=== PATIENT | female | born 1990 | race Caucasian/White ===

== ENCOUNTER 2021-04-02 00:45 | Emergency (ER) | payer MEDICAID ==
[2021-04-02 01:24] LABS: CORONAVIRUS COVID-19 NAA NEGATIVE (NEGATIVE)
[2021-04-02] MEDS ORDERED: Albuterol/Ipratropium 3.0-0.5 MG/3 ML Neb Soln NEB ONE (01:31)
--- NOTE | 2021-04-02 01:41 | EDM.PDOC ---
"ED HPI GENERAL MEDICAL PROBLEM - General Chief Complaint: Respiratory Problem Time Seen by Provider: 04/02/21 01:00 Source of Information: Reports: Patient History Limitations: Reports: No Limitations - History of Present Illness INITIAL COMMENTS - FREE TEXT/NARRATIVE: This 31 yo female patient was brought to the ED by [facility] with increased shortness of breath and a cough. The patient reports she was seen in the clinic yesterday due to pain in her shoulder and back. The patient reports she was given a steroid. After taking the steroid for a day, the patient started to notice a cough and increased shortness of breath. The patient reports her symptoms got much worse. EMS reports her oxygen level was 88% when she was on room air. The patient was placed on a non-rebreather at 10 lpm which increased her oxygen saturation to 96%. 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 The patient denies any other health problems at this time. The patient reports she did use a nebulizer when she was a child, but has not had any problems since that time. Onset: Today Duration: Constant, Getting Worse Location: Reports: Chest Quality: Reports: Other Severity: Moderate Improves with: Reports: None Worsens with: Reports: None Context: Reports: Other Associated Symptoms: Reports: cough w sputum, Shortness of Breath Back Pain Score (Numeric/FACES): 10 - Related Data Allergies Allergy/AdvReac Type Severity Reaction Status Date / Time No Known Allergies Allergy Verified 02/11/21 20:35 Home Meds: Home Meds . 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: , Spontaneous Musculoskeletal History: Reports: None Neurological History: Reports: None Psychiatric History: Reports: None Endocrine/Metabolic History: Reports: None Hematologic History: Reports: None Immunologic History: Reports: None Oncologic (Cancer) History: Reports: None Dermatologic History: Reports: None - Infectious Disease History Infectious Disease History: Reports: None - Past Surgical History GI Surgical History: Reports: Cholecystectomy Endocrine Surgical History: Reports: None Neurological Surgical History: Reports: None Musculoskeletal Surgical History: Reports: None Social & Family History - Family History Family Medical History: No Pertinent Family History - Caffeine Use Caffeine Use: Reports: Coffee, Soda ED ROS GENERAL - Review of Systems Review Of Systems: Comprehensive ROS is negative, except as noted in HPI. ED EXAM, GENERAL - Physical Exam Exam: See Below Exam Limited By: No Limitations General Appearance: Alert, WD/WN, Anxious, Moderate Distress Eye Exam: Bilateral Eye: EOMI, Normal Inspection, PERRL Ears: Normal External Exam, Normal Canal, Hearing Grossly Normal, Normal TMs Nose: Normal Inspection, Normal Mucosa, No Blood Throat/Mouth: Normal Inspection, Normal Lips, Normal Teeth, Normal Gums, Normal Oropharynx, Normal Voice, No Airway Compromise Head: Atraumatic, Normocephalic Neck: Normal Inspection, Supple, Non-Tender, Full Range of Motion Respiratory/Chest: Decreased Breath Sounds, Wheezing Cardiovascular: No Edema, No Gallop, No JVD, No Murmur, Tachycardia GI/Abdominal: Normal Bowel Sounds, Soft, Non-Tender, No Organomegaly, No Distention, No Abnormal Bruit, No Mass (Female) Exam: Deferred Rectal (Female) Exam: Deferred Back Exam: Normal Inspection, Full Range of Motion, NT Extremities: Normal Inspection, Normal Range of Motion, Non-Tender, Normal Capillary Refill, No Pedal Edema Neurological: Alert, Oriented, CN II-XII Intact, Normal Cognition, Normal Gait, Normal Reflexes, No Motor/Sensory Deficits Psychiatric: Normal Affect Skin Exam: Warm, Dry, Intact, Normal Color, No Rash Lymphatic: No Adenopathy #1 Interpretation EKG Date: 04/02/21 Time: 01:20 Rhythm: Other (Sinus Tach) [place]: Normal P-Wave: Present QRS: Normal ST-T: Normal QT: Normal Comparison: NA - No Prior EKG Course - Vital Signs Last Recorded V/S: Last Vital Signs Temp 36.1 C 04/02/21 00:57 Pulse 111 H 04/02/21 00:57 Resp 28 H 04/02/21 00:57 BP 105/74 04/02/21 00:57 Pulse Ox 88 L 04/02/21 00:57 - Orders/Labs/Meds Orders: Active Orders 24 hr Category Date Time Status EKG Documentation Completion [RC] STAT Care 04/02/21 00:41 Active RT Aerosol Therapy [RC] ASDIRECTED Care 04/02/21 01:31 Ordered CULTURE BLOOD [BC] Stat Lab 04/02/21 00:41 Ordered DRUG SCREEN URINE BIORAD [URCHEM] Stat Lab 04/02/21 00:41 Ordered HCG QUALITATIVE,URINE [URCHEM] Stat Lab 04/02/21 00:41 Ordered UA RFX KADEN AND CULT IF INDIC [URIN] Urgent Lab 04/02/21 00:41 Ordered Labs: Laboratory Tests 04/02/21 04/02/21 04/02/21 Range/Units 00:40 01:35 01:35 WBC 15.7 H (5.0-10.0) 10^3/uL RBC 4.67 (4.2-5.4) 10^6/uL Hgb 13.7 (12.0-16.0) g/dL Hct 41.6 (37.0-47.0) % MCV 89.1 (80-100) fL MCH 29.3 (27.0-34.0) pg MCHC 32.9 L (33.0-35.0) g/dL Plt Count 261 (150-450) 10^3/uL Neut % (Auto) 80.8 H (42.2-75.2) % Lymph % (Auto) 12.6 L (20.5-50.1) % Sharkey % (Auto) 5.0 (2-8) % Eos % (Auto) 1.4 (1.0-3.0) % Baso % (Auto) 0.2 (0.0-1.0) % D-Dimer, Quantitative (0-400) ng/mL Sodium 139 (136-145) mmol/L Potassium 3.7 (3.5-5.1) mmol/L Chloride 102 (98-107) mmol/L Carbon Dioxide 26 (21-32) mmol/L Anion Gap 14.7 H (7-13) mEq/L BUN 12 (7-18) mg/dL Creatinine 0.93 (0.55-1.02) mg/dL Est Cr Clr Drug Dosing 79.59 mL/min Estimated GFR (MDRD) > 60 BUN/Creatinine Ratio 12.9 (No establ ref range) Glucose 110 H (70-99) mg/dL Lactic Acid (0.4-2.0) mmol/L Calcium 8.1 L (8.5-10.1) mg/dL Total Bilirubin 0.5 (0.2-1.0) mg/dL AST 14 L (15-37) U/L ALT 31 (14-59) U/L Alkaline Phosphatase 76 (46-116) U/L Troponin I < 0.017 (0.000-0.056) ng/mL Total Protein 6.8 (6.4-8.2) g/dL Albumin 3.5 (3.4-5.0) g/dL Globulin 3.3 Albumin/Globulin Ratio 1.1 Influenza Type A RNA Negative (NEGATIVE) Influenza Type B RNA Negative (NEGATIVE) SARS-CoV-2 RNA (DE) Negative (NEGATIVE) 04/02/21 04/02/21 Range/Units 01:35 01:35 WBC (5.0-10.0) 10^3/uL RBC (4.2-5.4) 10^6/uL Hgb (12.0-16.0) g/dL Hct (37.0-47.0) % MCV (80-100) fL MCH (27.0-34.0) pg MCHC (33.0-35.0) g/dL Plt Count (150-450) 10^3/uL Neut % (Auto) (42.2-75.2) % Lymph % (Auto) (20.5-50.1) % Sharkey % (Auto) (2-8) % Eos % (Auto) (1.0-3.0) % Baso % (Auto) (0.0-1.0) % D-Dimer, Quantitative 563 H (0-400) ng/mL Sodium (136-145) mmol/L Potassium (3.5-5.1) mmol/L Chloride (98-107) mmol/L Carbon Dioxide (21-32) mmol/L Anion Gap (7-13) mEq/L BUN (7-18) mg/dL Creatinine (0.55-1.02) mg/dL Est Cr Clr Drug Dosing mL/min Estimated GFR (MDRD) BUN/Creatinine Ratio (No establ ref range) Glucose (70-99) mg/dL Lactic Acid 0.8 (0.4-2.0) mmol/L Calcium (8.5-10.1) mg/dL Total Bilirubin (0.2-1.0) mg/dL AST (15-37) U/L ALT (14-59) U/L Alkaline Phosphatase (46-116) U/L Troponin I (0.000-0.056) ng/mL Total Protein (6.4-8.2) g/dL Albumin (3.4-5.0) g/dL Globulin Albumin/Globulin Ratio Influenza Type A RNA (NEGATIVE) Influenza Type B RNA (NEGATIVE) SARS-CoV-2 RNA (DE) (NEGATIVE) Meds: Medications Discontinued Medications Generic Name Dose Route Start Last Admin Trade Name Freq PRN Reason Stop Dose Admin Acetaminophen 650 mg 04/02/21 02:07 04/02/21 02:16 Acetaminophen 325 Mg Tab PO 04/02/21 02:08 650 mg NOW ONE Administration Albuterol/Ipratropium 3 ml 04/02/21 01:31 04/02/21 01:40 Albuterol/Ipratropium 3.0-0.5 Mg/3 Ml Neb Soln NEB 04/02/21 01:32 3 ml ONETIME ONE Administration Iopamidol 100 ml 04/02/21 02:12 04/02/21 02:28 Iopamidol 755 Mg/Ml 100 Ml Bottle IVPUSH 04/02/21 02:13 100 ml ONETIME ONE Administration - Radiology Interpretation Free Text/Narrative:: [facility] Final Radiology Report Call: [phone] assistance Online chat: [email or web address] Name: JUAN HIRSCH Age: 31Years F Date: 04/02/2021 SSN: -- : [id number] Study: CT CHEST W CONT Requesting Physician: Taz Aggarwal Images: [phone] Addl Studies: Provided Clinical History: Shortness of breath Contrast: With Contrast Medium: [id number] Contrast Amount: 87 mL Contrast Method: Intravenous (IV) Page 1 of 2 PROCEDURE INFORMATION: Exam: CT Chest With Contrast; Diagnostic Exam date and time: 04/02/2021 2:51 AM Age: 31 years old Clinical indication: Other: D-dimer 563, wbc 15.7 pe protocol; Additional info: Shortness of breath TECHNIQUE: Imaging protocol: Diagnostic computed tomography of the chest with contrast. Radiation optimization: All CT scans at this facility use at least one of these dose optimization techniques: automated exposure control; mA and/or kV adjustment per patient size (includes targeted exams where dose is matched to clinical indication); or iterative reconstruction. Contrast material: [id number]; Contrast volume: 87 ml; Contrast route: INTRAVENOUS (IV); COMPARISON: No relevant prior studies available. FINDINGS: Thyroid: No concerning thyroid gland nodules. Lungs: The central airways are patent. Region ground-glass attenuation in the right lower lobe measures 1.9 x 2.8 x 1.8 cm. Solid nodule in the left lower lobe measures 1.3 cm. Perihilar groundglass nodules are present in the lingular lobe and measure up to 0.8 cm. Pleural spaces: No pleural effusion or pneumothorax. Heart: No pericardial effusion. No cardiomegaly. Mediastinal space: Pneumomediastinum extends from the lower neck to the diaphrag matic hiatus. Aorta: The thoracic aorta is normal in caliber and without evidence of dissection. Lymph nodes: No axillary or supraclavicular lymphadenopathy. No mediastinal or hilar lymphadenopathy. Gallbladder and bile ducts: The gallbladder is surgically absent. No evident ductal dilation. Bones/joints: The bones are normal for age. JUAN HIRSCH | Final Radiology Report CONFIDENTIALITY STATEMENT This report is intended only for use by the referring physician, and only in accordance with law. If you received this in error, call [phone]. Page 2 of 2 Soft tissues: The soft tissues are unremarkable. IMPRESSION: 1. Pneumomediastinum. 2. Multifocal ground-glass and solid nodularity, measuring up to 2.8 cm in the r ight lower lobe. This is nonspecific but most likely represents infection. Correlate for history of aspiration. A repeat chest CT in 3 months is recommended for confirmation of resolution. Thank you for allowing us to participate in the care of your patient. Dictated and Authenticated by: Seth Guido MD 04/02/2021 3:33 AM Central Time ([place] & [place]) Departure - Departure Time of Disposition: 04:15 Disposition: Home, Self-Care 01 Condition: Fair Clinical Impression: Community acquired pneumonia Qualifiers: Laterality: right Lung location: unspecified part of lung Qualified Code(s): J18.9 - Pneumonia, unspecified organism - Discharge Information *PRESCRIPTION DRUG MONITORING PROGRAM REVIEWED*: Not Applicable *COPY OF PRESCRIPTION DRUG MONITORING REPORT IN PATIENT ERNST: Not Applicable Instructions: Community-Acquired Pneumonia, Adult, [id number] Forms: ED Department Discharge Care Plan Goals: The patient was advised of the examination, lab and CT results during the visit. The patient was given a nebulizer treatment, IV antibiotics and an oral dose of antibiotics while in the ED. The patient was discharged with a script for Azithromycin (250 mg) #4 to take 1 by mouth daily. The patient may take over the counter medications for temporary symptom relief. The patient should follow-up with her primary care facility for continued evaluation and management. The patient should also have a follow-up CT of her chest in 3 months to confirm resolution of abnormalities noted on CT. If the patient has any additional symptoms or concerns, the patient should either return to the emergency department or visit her primary care facility. Sepsis Event Note (ED) - Evaluation Sepsis Screening Result: No Definite Risk - Focused Exam Vital Signs: Vital Signs Temp Pulse Resp BP Pulse Ox 04/02/21 00:57 36.1 C 111 H 28 H 105/74 88 L - My Orders Last 24 Hours: My Active Orders 04/02/21 00:41 EKG Documentation Completion [RC] STAT CULTURE BLOOD [BC] Stat DRUG SCREEN URINE BIORAD [URCHEM] Stat HCG QUALITATIVE,URINE [URCHEM] Stat UA RFX KADEN AND CULT IF INDIC [URIN] Urgent 04/02/21 01:31 RT Aerosol Therapy [RC] ASDIRECTED - Assessment/Plan Last 24 Hours: My Active Orders 04/02/21 00:41 EKG Documentation Completion [RC] STAT CULTURE BLOOD [BC] Stat DRUG SCREEN URINE BIORAD [URCHEM] Stat HCG QUALITATIVE,URINE [URCHEM] Stat UA RFX KADEN AND CULT IF INDIC [URIN] Urgent 04/02/21 01:31 RT Aerosol Therapy [RC] ASDIRECTED"
[2021-04-02] MEDS ORDERED: Acetaminophen 325 MG Tab PO ONE (02:07)
[2021-04-02 02:09] LABS: ANION GAP 14.7 mEq/L (7-13); CHLORIDE,CL 102 mmol/L (98-107); SODIUM,NA 139 mmol/L (136-145)
[2021-04-02] MEDS ORDERED: Iopamidol 755 Mg/ML 100 ML Bottle IVPUSH ONE (02:12)
--- NOTE | 2021-04-02 03:33 | CT ---
PROCEDURE INFORMATION: Exam: CT Chest With Contrast; Diagnostic Exam date and time: 04/02/2021 2:51 AM Age: 31 years old Clinical indication: Other: D-dimer 563, wbc 15.7 pe protocol; Additional info: Shortness of breath TECHNIQUE: Imaging protocol: Diagnostic computed tomography of the chest with contrast. Radiation optimization: All CT scans at this facility use at least one of these dose optimization techniques: automated exposure control; mA and/or kV adjustment per patient size (includes targeted exams where dose is matched to clinical indication); or iterative reconstruction. Contrast material: [id number]; Contrast volume: 87 ml; Contrast route: INTRAVENOUS (IV); COMPARISON: No relevant prior studies available. FINDINGS: Thyroid: No concerning thyroid gland nodules. Lungs: The central airways are patent. Region ground-glass attenuation in the right lower lobe measures 1.9 x 2.8 x 1.8 cm. Solid nodule in the left lower lobe measures 1.3 cm. Perihilar ground-glass nodules are present in the lingular lobe and measure up to 0.8 cm. Pleural spaces: No pleural effusion or pneumothorax. Heart: No pericardial effusion. No cardiomegaly. Mediastinal space: Pneumomediastinum extends from the lower neck to the diaphragmatic hiatus. Aorta: The thoracic aorta is normal in caliber and without evidence of dissection. Lymph nodes: No axillary or supraclavicular lymphadenopathy. No mediastinal or hilar lymphadenopathy. Gallbladder and bile ducts: The gallbladder is surgically absent. No evident ductal dilation. Bones/joints: The bones are normal for age. Soft tissues: The soft tissues are unremarkable. IMPRESSION: 1. Pneumomediastinum. 2. Multifocal ground-glass and solid nodularity, measuring up to 2.8 cm in the right lower lobe. This is nonspecific but most likely represents infection. Correlate for history of aspiration. A repeat chest CT in 3 months is recommended for confirmation of resolution.
[2021-04-02] MEDS ORDERED: Azithromycin 250 MG Tab PO ONE (03:39)
[2021-04-02] MEDS ORDERED: cefTRIAXone 1 GM in Sodium Chloride 0.9% 50 ML IV ONE (03:39)
== END 2021-04-02 06:40 | disposition home or self-care (01) ==
LOC: DL.ED 00:45
DX: J18.9 Pneumonia, unspecified organism (principal); Z20.822 Contact with and (suspected) exposure to COVID-19
CPT/HCPCS: 0240U; 36415; 71260; 80053; 83605; 84484; 85025; 85379; 87040; 93005; 93010; 96365; 99284; 99285; A9270; J0696; Q9967; J7620-GY

== ENCOUNTER 2022-07-22 12:48 | Emergency (ER) | payer MEDICAID ==
[2022-07-22] MEDS ORDERED: Clindamycin HCl 150 MG Cap PO ONE ×2 (12:49→14:32)
[2022-07-22] MEDS ORDERED: Sodium Chloride 0.9% 10 ML Syringe FLUSH PRN (13:03)
[2022-07-22] MEDS ORDERED: Pantoprazole 40 MG Vial IVPUSH ONE (13:03)
[2022-07-22] MEDS ORDERED: GI Cocktail Oral Solution 30 ML PO ONE (13:03)
[2022-07-22 13:42] LABS: ANION GAP 10.9 mEq/L (7-13); CHLORIDE,CL 104 mmol/L (98-107); SODIUM,NA 140 mmol/L (136-145)
[2022-07-22 13:43] LABS: ESTIMATED GFR 94 mL/min (>=60)
[2022-07-22 14:02] LABS: PTT,PARTIAL THROMBOPLSTIN TIME 25.1 SEC (22.0-34.0)
[2022-07-22 14:18] LABS: AMPHETAMINES,URINE NEGATIVE (NEGATIVE); BARBITURATES,URINE NEGATIVE (NEGATIVE); BENZODIAZEPINE,URINE NEGATIVE (NEGATIVE); MDMA (ECSTASY), URINE NEGATIVE (NEGATIVE); METHADONE,URINE NEGATIVE (NEGATIVE); METHAMPHETAMINES,URINE NEGATIVE (NEGATIVE); OPIATES,URINE NEGATIVE (NEGATIVE); OXYCODONE,URINE NEGATIVE (NEGATIVE); PHENCYCLIDINE,URINE NEGATIVE (NEGATIVE); TCA,URINE NEGATIVE (NEGATIVE)
[2022-07-22] MEDS ORDERED: Lidocaine 2% Viscous Solution 15 ML UD PO ONE (14:25)
[2022-07-22] MEDS ORDERED: Clindamycin HCl 150 MG Cap ONE (14:38)
== END 2022-07-22 14:45 | disposition home or self-care (01) ==
LOC: DL.ED 12:48
DX: R10.9 Unspecified abdominal pain (principal); K64.4 Residual hemorrhoidal skin tags; K08.89 Other specified disorders of teeth and supporting structures; E11.9 Type 2 diabetes mellitus without complications; Z90.49 Acquired absence of other specified parts of digestive tract; Z87.891 Personal history of nicotine dependence; Z79.899 Other long term (current) drug therapy
CPT/HCPCS: 36415; 80053; 80305; 80307; 81003; 81025; 82150; 82272; 83690; 84484; 85025; 85610; 85730; 96374; 99284; A9270; C9113; J3490

== ENCOUNTER 2022-09-02 19:56 | Emergency (ER) | payer MEDICAID ==
[2022-09-02] MEDS ORDERED: Ibuprofen 600 MG Tab PO ONE (20:23)
== END 2022-09-02 21:27 | disposition home or self-care (01) ==
LOC: DL.ED 19:56
DX: S93.401A Sprain of unspecified ligament of right ankle, initial encounter (principal); E11.9 Type 2 diabetes mellitus without complications; X50.1XXA Overexertion from prolonged static or awkward postures, initial encounter
CPT/HCPCS: 73610; 99283; A9270

== ENCOUNTER 2023-12-20 18:06 | Emergency (ER) | payer MEDICARE, MEDICAID ==
[2023-12-20] MEDS ORDERED: Lactated Ringers 1,000 ML IV ONE (18:42)
[2023-12-20] MEDS ORDERED: Prochlorperazine 5 MG Tab PO ONE (18:42)
[2023-12-20] MEDS ORDERED: Ketorolac 30 MG/ML SDV IVPUSH ONE (18:43)
[2023-12-20] MEDS ORDERED: diphenhydrAMINE 50 MG/ML SDV IVPUSH ONE (18:47)
== END 2023-12-20 19:55 | disposition home or self-care (01) ==
LOC: DL.ED 18:06
DX: G43.909 Migraine, unspecified, not intractable, without status migrainosus (principal); F17.210 Nicotine dependence, cigarettes, uncomplicated; Z88.8 Allergy status to other drugs, medicaments and biological substances
CPT/HCPCS: 96374; 96375; 99283; 99283-25; J1200; J1885; J7120; Q0164

== ENCOUNTER 2024-01-24 00:32 | Emergency (ER) | payer MEDICARE, MEDICAID ==
[2024-01-24 00:59] LABS: BASOPHILS PERCENT AUTO 0.1 % (0.0-1.0); EOSINOPHILS PERCENT AUTO 0.2 % (1.0-3.0); HEMATOCRIT 40.8 % (37.0-47.0); HEMOGLOBIN 13.8 g/dL (12.0-16.0); LYMPHOCYTES PERCENT AUTO 30.9 % (20.5-50.1); MEAN CORPUSCULAR HEMOGLOBIN 29.8 pg (27.0-34.0); MEAN CORPUSCULAR HGB CONC 33.8 g/dL (33.0-35.0); MEAN CORPUSCULAR VOLUME 88.1 fL (80-100); MONOCYTES PERCENT AUTO 5.9 % (2-8); NEUTROPHILS PERCENT AUTO 62.9 % (42.2-75.2); PLATELET COUNT,PLT 278 10^3/uL (150-450); RED BLOOD CELL COUNT 4.63 10^6/uL (4.2-5.4)
[2024-01-24] MEDS: Ketorolac 30 MG/ML SDV IVPUSH ONE (00:59)
[2024-01-24] MEDS: Sodium Chloride 0.9% 1,000 ML IV ONE (01:08)
[2024-01-24] MEDS: Sodium Chloride 0.9% 10 ML Syringe FLUSH PRN (01:08)
[2024-01-24 01:15] LABS: A/G RATIO 0.9; ALANINE AMINOTRANSFERASE,ALT 21 U/L (14-59); ALBUMIN 3.6 g/dL (3.4-5.0); ALKALINE PHOSPHATASE 97 U/L (46-116); ANION GAP 11.5 mEq/L (7-13); ASPARTATE AMNIOTRANSFERASE,AST 16 U/L (15-37); BILIRUBIN TOTAL 0.4 mg/dL (0.2-1.0); BLOOD UREA NITROGEN,BUN 13 mg/dL (7-18); BUN/CREATININE RATIO 16.5 (No establ ref range); CALCIUM 8.7 mg/dL (8.5-10.1); CARBON DIOXIDE,CO2 27 mmol/L (21-32); CHLORIDE,CL 102 mmol/L (98-107); CREATININE 0.79 mg/dL (0.55-1.02); EST CRCL DRUG DOSING (CG) 87.46 mL/min; ESTIMATED GFR 101 mL/min (>=60); GLUCOSE RANDOM 139 mg/dL (70-99); POTASSIUM,K 3.5 mmol/L (3.5-5.1); PROTEIN TOTAL,TP 7.7 g/dL (6.4-8.2); SODIUM,NA 137 mmol/L (136-145)
== END 2024-01-24 03:23 | disposition home or self-care (01) ==
LOC: DL.ED 00:32
DX: R07.89 Other chest pain (principal); G43.909 Migraine, unspecified, not intractable, without status migrainosus; E11.9 Type 2 diabetes mellitus without complications; Z88.8 Allergy status to other drugs, medicaments and biological substances
CPT/HCPCS: 36415; 80053; 84484; 85025; 93005; 93010; 96374; 99284; 99285-25; J1885; J3490; J7030

== ENCOUNTER 2024-02-27 23:01 | Emergency (ER) | payer BC, MEDICAID, MEDICARE ==
[2024-02-27] MEDS: Ketorolac 30 MG/ML SDV IM ONE (23:58)
[2024-02-27] MEDS: Lidocaine 5% 700 MG Patch TOP ONE (23:58)
== END 2024-02-28 01:03 | disposition home or self-care (01) ==
LOC: DL.ED 23:01
DX: M54.2 Cervicalgia (principal); M54.9 Dorsalgia, unspecified; I10 Essential (primary) hypertension; E66.9 Obesity, unspecified; F17.210 Nicotine dependence, cigarettes, uncomplicated; Z68.42 Body mass index [BMI] 45.0-49.9, adult; Z90.49 Acquired absence of other specified parts of digestive tract; Z88.8 Allergy status to other drugs, medicaments and biological substances; Z79.899 Other long term (current) drug therapy
CPT/HCPCS: 96372; 99283; A9270; J1885

== ENCOUNTER 2024-04-01 20:03 | Emergency (ER) | payer BC, MEDICAID ==
[2024-04-01] MEDS: Ondansetron 4 MG/2 ML SDV IVPUSH ONE (20:19)
[2024-04-01 20:20] LABS: HEMATOCRIT 38.2 % (37.0-47.0); HEMOGLOBIN 12.6 g/dL (12.0-16.0); LYMPHOCYTES PERCENT AUTO 34.2 % (20.5-50.1); MEAN CORPUSCULAR HEMOGLOBIN 29.3 pg (27.0-34.0); MEAN CORPUSCULAR VOLUME 88.8 fL (80-100); NEUTROPHILS PERCENT AUTO 56.8 % (42.2-75.2); PLATELET COUNT,PLT 257 10^3/uL (150-450); WHITE BLOOD CELL COUNT,WBC 8.6 10^3/uL (5.0-10.0)
[2024-04-01] MEDS: Sodium Chloride 0.9% 10 ML Syringe FLUSH PRN (20:20)
[2024-04-01 20:42] LABS: ALANINE AMINOTRANSFERASE,ALT 23 U/L (14-59); ALBUMIN 3.3 g/dL (3.4-5.0); ALKALINE PHOSPHATASE 101 U/L (46-116); ANION GAP 10.9 mEq/L (7-13); ASPARTATE AMNIOTRANSFERASE,AST 20 U/L (15-37); BILIRUBIN TOTAL 0.2 mg/dL (0.2-1.0); BLOOD UREA NITROGEN,BUN 13 mg/dL (7-18); BUN/CREATININE RATIO 15.1 (No establ ref range); CALCIUM 8.2 mg/dL (8.5-10.1); CARBON DIOXIDE,CO2 29 mmol/L (21-32); CHLORIDE,CL 103 mmol/L (98-107); CREATININE 0.86 mg/dL (0.55-1.02); EST CRCL DRUG DOSING (CG) 80.34 mL/min; ESTIMATED GFR 91 mL/min (>=60); GLUCOSE RANDOM 91 mg/dL (70-99); POTASSIUM,K 3.9 mmol/L (3.5-5.1); PROTEIN TOTAL,TP 7.4 g/dL (6.4-8.2); SODIUM,NA 139 mmol/L (136-145)
[2024-04-01] MEDS: LORazepam 0.5 MG Tab PO ONE (21:13)
[2024-04-01] MEDS: Acetaminophen 500 MG Tab PO ONE (21:14)
[2024-04-01 21:15] LABS: INR 0.9 (0.9-1.2); PROTHROMBIN TIME 9.8 SEC (9.0-12.0)
[2024-04-01 21:16] LABS: PTT,PARTIAL THROMBOPLSTIN TIME 26.7 SEC (22.0-34.0)
[2024-04-01 21:29] LABS: CORONAVIRUS COVID-19 NAA NEGATIVE (NEGATIVE); INFLUENZA A NAA NEGATIVE (NEGATIVE); INFLUENZA B NAA NEGATIVE (NEGATIVE); RESPIRATORY SYNCYTIAL VIR NAA NEGATIVE (NEGATIVE)
[2024-04-01] MEDS: Take Home: hydrOXYzine HCl 25 MG Tab, 4 Tab Pack PO ONE (22:08)
== END 2024-04-01 22:08 | disposition home or self-care (01) ==
LOC: DL.ED 20:03
DX: F41.9 Anxiety disorder, unspecified (principal); R07.89 Other chest pain; R06.02 Shortness of breath; I10 Essential (primary) hypertension; Z88.8 Allergy status to other drugs, medicaments and biological substances; Z79.899 Other long term (current) drug therapy; Z90.49 Acquired absence of other specified parts of digestive tract
CPT/HCPCS: 0241U; 36415; 71045; 80053; 84484; 85025; 85610; 85730; 93005; 93010; 96374; 99284; 99285-25; A9270-GY; J2405; J3490

== ENCOUNTER 2024-10-21 17:05 | Emergency (ER) | payer BC, MEDICARE ==
[2024-10-21] MEDS: Diphtheria,Pertussis(Acell),Tetanus Vaccine 0.5 ML Syringe IM ONE (17:37)
== END 2024-10-21 17:40 | disposition home or self-care (01) ==
LOC: DL.ED 17:05
DX: S61.211A Laceration without foreign body of left index finger without damage to nail, initial encounter (principal); I10 Essential (primary) hypertension; J45.909 Unspecified asthma, uncomplicated; E66.9 Obesity, unspecified; Z90.49 Acquired absence of other specified parts of digestive tract; Z88.8 Allergy status to other drugs, medicaments and biological substances; W26.8XXA Contact with other sharp object(s), not elsewhere classified, initial encounter; Z23 Encounter for immunization
CPT/HCPCS: 12001; 90471; 90715; 99282-25

== ENCOUNTER 2024-12-13 11:51 | Emergency (ER) | payer MEDICARE, MEDICAID ==
[2024-12-13 12:59] LABS: APPEARANCE,URINE CLEAR (CLEAR); BILIRUBIN,URINE NEGATIVE (NEGATIVE); GLUCOSE,URINE NEGATIVE (NEGATIVE); KETONES,URINE NEGATIVE (NEGATIVE); LEUKOCYTE ESTERASE,URINE TRACE (NEGATIVE); NITRITE,URINE NEGATIVE (NEGATIVE); OCCULT BLOOD,URINE NEGATIVE (NEGATIVE); PH,URINE 5.5 (5.0-9.0); PROTEIN,URINE NEGATIVE (NEGATIVE); UROBILINOGEN,URINE 0.2 mg/dL (0.2-1.0)
[2024-12-13 13:11] LABS: COLOR,URINE LIGHT YELLOW (YELLOW)
[2024-12-13 13:28] LABS: BACTERIA,URINE FEW /HPF (0-FEW/HPF); EPITHELIAL CELLS,URINE MODERATE /HPF (NOT SEEN); MUCUS,URINE RARE /LPF (NOT SEEN); RBC,URINE NOT SEEN /HPF (0-5); WBC,URINE 0-5 /HPF (0-5/HPF)
== END 2024-12-13 13:05 | disposition left against medical advice (07) ==
LOC: DL.ED 11:51
DX: Z53.21 Procedure and treatment not carried out due to patient leaving prior to being seen by health care provider (principal)
CPT/HCPCS: 81001; 81025; 87086

== ENCOUNTER 2025-04-23 10:50 | Emergency (ER) | payer MEDICARE, MEDICAID ==
[2025-04-23 11:08] LABS: APPEARANCE,URINE CLEAR (CLEAR); BILIRUBIN,URINE NEGATIVE (NEGATIVE); COLOR,URINE YELLOW (YELLOW); GLUCOSE,URINE NEGATIVE (NEGATIVE); KETONES,URINE TRACE (NEGATIVE); LEUKOCYTE ESTERASE,URINE NEGATIVE (NEGATIVE); NITRITE,URINE NEGATIVE (NEGATIVE); OCCULT BLOOD,URINE NEGATIVE (NEGATIVE); PROTEIN,URINE NEGATIVE (NEGATIVE); UROBILINOGEN,URINE 0.2 mg/dL (0.2-1.0)
== END 2025-04-23 12:10 | disposition home or self-care (01) ==
LOC: DL.ED 10:50
DX: O99.891 Other specified diseases and conditions complicating pregnancy (principal); R10.9 Unspecified abdominal pain; I10 Essential (primary) hypertension; E66.9 Obesity, unspecified; Z88.8 Allergy status to other drugs, medicaments and biological substances; Z79.899 Other long term (current) drug therapy; Z90.49 Acquired absence of other specified parts of digestive tract; Z68.42 Body mass index [BMI] 45.0-49.9, adult; Z3A.01 Less than 8 weeks gestation of pregnancy
CPT/HCPCS: 36415; 81003; 81025; 84702; 99283; 99284

== ENCOUNTER 2025-05-15 18:12 | Emergency (ER) | payer MEDICARE, MEDICAID ==
[2025-05-15 18:59] LABS: BASOPHILS PERCENT AUTO 0.1 % (0.0-1.0); EOSINOPHILS PERCENT AUTO 0.1 % (1.0-3.0); HEMATOCRIT 36.5 % (37.0-47.0); LYMPHOCYTES PERCENT AUTO 18.3 % (20.5-50.1); MEAN CORPUSCULAR HEMOGLOBIN 29.1 pg (27.0-34.0); MEAN CORPUSCULAR HGB CONC 32.9 g/dL (33.0-35.0); MEAN CORPUSCULAR VOLUME 88.4 fL (80-100); MONOCYTES PERCENT AUTO 6.5 % (2-8); PLATELET COUNT,PLT 260 10^3/uL (150-450); RED BLOOD CELL COUNT 4.13 10^6/uL (4.2-5.4); WHITE BLOOD CELL COUNT,WBC 12.7 10^3/uL (5.0-10.0)
[2025-05-15 19:11] LABS: APPEARANCE,URINE SLIGHTLY CLOUDY (CLEAR); BILIRUBIN,URINE NEGATIVE (NEGATIVE); COLOR,URINE YELLOW (YELLOW); GLUCOSE,URINE NEGATIVE (NEGATIVE); KETONES,URINE NEGATIVE (NEGATIVE); LEUKOCYTE ESTERASE,URINE NEGATIVE (NEGATIVE); NITRITE,URINE NEGATIVE (NEGATIVE); OCCULT BLOOD,URINE NEGATIVE (NEGATIVE); PROTEIN,URINE NEGATIVE (NEGATIVE); UROBILINOGEN,URINE 0.2 mg/dL (0.2-1.0)
[2025-05-15 19:13] LABS: ANION GAP 16.3 mEq/L (7-13); BLOOD UREA NITROGEN,BUN 10 mg/dL (7-18); CARBON DIOXIDE,CO2 23 mmol/L (21-32); CHLORIDE,CL 103 mmol/L (98-107); CREATININE 0.66 mg/dL (0.55-1.02); GLUCOSE RANDOM 113 mg/dL (70-99); POTASSIUM,K 3.3 mmol/L (3.5-5.1); SODIUM,NA 139 mmol/L (136-145)
[2025-05-15 19:15] LABS: ESTIMATED GFR 118 mL/min (>=60)
[2025-05-15 19:26] LABS: HCG QUALITATIVE,SERUM POSITIVE (NEGATIVE)
[2025-05-15] MEDS: Sodium Chloride 0.9% 1,000 ML IV ONE (19:56)
== END 2025-05-15 21:05 | disposition home or self-care (01) ==
LOC: DL.ED 18:12
DX: O20.0 Threatened abortion (principal); O99.282 Endocrine, nutritional and metabolic diseases complicating pregnancy, second trimester; E86.0 Dehydration; O10.012 Pre-existing essential hypertension complicating pregnancy, second trimester; Z88.8 Allergy status to other drugs, medicaments and biological substances; Z79.899 Other long term (current) drug therapy; Z90.49 Acquired absence of other specified parts of digestive tract; Z3A.18 18 weeks gestation of pregnancy
CPT/HCPCS: 36415; 80048; 81003; 84702; 84703; 85025; 86900; 86901; 96360; 99284; J7030

== ENCOUNTER 2025-06-28 15:26 | Emergency (ER) | payer MEDICARE, MEDICAID ==
[2025-06-28 15:49] LABS: BASOPHILS PERCENT AUTO 0.1 % (0.0-1.0); EOSINOPHILS PERCENT AUTO 0.1 % (1.0-3.0); LYMPHOCYTES PERCENT AUTO 19.1 % (20.5-50.1); MONOCYTES PERCENT AUTO 5.9 % (2-8); NEUTROPHILS PERCENT AUTO 74.8 % (42.2-75.2); PLATELET COUNT,PLT 231 10^3/uL (150-450); RED BLOOD CELL COUNT 3.82 10^6/uL (4.2-5.4); WHITE BLOOD CELL COUNT,WBC 11.2 10^3/uL (5.0-10.0)
[2025-06-28 16:07] LABS: INR 0.9 (0.9-1.2); PTT,PARTIAL THROMBOPLSTIN TIME 25.4 SEC (22.0-34.0)
[2025-06-28 16:12] LABS: APPEARANCE,URINE CLEAR (CLEAR); GLUCOSE,URINE NEGATIVE (NEGATIVE); OCCULT BLOOD,URINE NEGATIVE (NEGATIVE)
[2025-06-28] MEDS: Ketorolac 30 MG/ML SDV IVPUSH ONE (16:31)
[2025-06-28] MEDS: diphenhydrAMINE 50 MG/ML SDV IVPUSH ONE (16:34)
== END 2025-06-28 17:37 | disposition home or self-care (01) ==
LOC: DL.ED 15:26
DX: O20.9 Hemorrhage in early pregnancy, unspecified (principal); O99.352 Diseases of the nervous system complicating pregnancy, second trimester; G43.909 Migraine, unspecified, not intractable, without status migrainosus; O10.012 Pre-existing essential hypertension complicating pregnancy, second trimester; Z88.8 Allergy status to other drugs, medicaments and biological substances; Z79.899 Other long term (current) drug therapy; Z3A.17 17 weeks gestation of pregnancy
CPT/HCPCS: 36415; 81003; 84702; 85025; 85610; 85730; 96374; 96375; 99283; 99284; J1200; J1885; J2765; J7030